=== PATIENT | female | born 1950 | race Caucasian/White ===

== ENCOUNTER → 2016-07-30 | Outpatient (CLI) | payer OTHER, MEDICARE | LOC: BMCIMAGING 16:01 | PROVIDERS: ATTEND Internal Medicine Rheumatology | DX: R93.7 Abnormal findings on diagnostic imaging of other parts of musculoskeletal system (principal); M79.641 Pain in right hand; M79.642 Pain in left hand; M25.561 Pain in right knee; M51.37 Other intervertebral disc degeneration, lumbosacral region; M81.0 Age-related osteoporosis without current pathological fracture; R79.82 Elevated C-reactive protein (CRP) | CPT/HCPCS: 86235-90 ==

== ENCOUNTER → 2016-08-13 | Outpatient (CLI) | payer OTHER, MEDICARE | LOC: FIMAGING 09:55 | PROVIDERS: ATTEND Internal Medicine | DX: Z12.31 Encounter for screening mammogram for malignant neoplasm of breast (principal); M81.0 Age-related osteoporosis without current pathological fracture | CPT/HCPCS: G0202 ==